=== PATIENT | female | born 1950 | race Caucasian/White ===

== ENCOUNTER 2018-05-12 13:26 | Inpatient (IN) | payer MEDICARE, MEDICAID ==
[~2018-05-12] VITALS: Ht 160 cm; Wt 84.8 kg
[2018-05-12 14:08] LABS: BASOPHILS % (AUTO) 0.4 % (0-1); EOSINOPHILS % (AUTO) 0 % (0-6); HEMATOCRIT 35.9 % (35.0-45.0); HEMOGLOBIN 11.7 g/dl (12.0-16.0); LYMPHOCYTES # (AUTO) 2.2 X10'3 (1.1-4.8); LYMPHOCYTES % (AUTO) 21.9 % (21-51); MEAN CORPUSCULAR HEMOGLOBIN 29.3 PG (27.0-31.0); MEAN CORPUSCULAR HGB CONC 32.6 % (33.0-36.5); MEAN CORPUSCULAR VOLUME 89.8 FL (78-98); MEAN PLATELET VOLUME 9.3 FL (7.4-10.4); MONOCYTES % (AUTO) 9.6 % (2-12); NEUTROPHILS # (AUTO) 6.8 X10'3 (1.8-7.7); NEUTROPHILS % (AUTO) 68.1 % (42-75); PLATELET COUNT 211 X10'3 (140-440); RED CELL DISTRIBUTION WIDTH 15.6 % (11.5-14.5)
[2018-05-12 14:17] LABS: INR 1.1 INR; PARTIAL THROMBOPLASTIN TIME 27 SECONDS (22-32); PROTHROMBIN TIME 10.9 SECONDS (9.0-12.0)
[2018-05-12] MEDS ORDERED: ondansetron 4mg rapidly disintigrating tab PO ONE (14:20)
[2018-05-12] MEDS ORDERED: LORazepam 1 MG tablet PO ONE (14:20)
[2018-05-12] MEDS ORDERED: aspirin 325mg tablet PO ONE (14:20)
[2018-05-12 14:22] LABS: ALANINE AMINOTRANSFERASE 33 U/L (12-78); ALBUMIN 3.3 G/DL (3.4-5.0); ALBUMIN/GLOBULIN RATIO 0.9 (1.1-1.5); ALKALINE PHOSPHATASE 60 IU/L (46-116); ANION GAP 11 (8-16); ASPARTATE AMINO TRANSFERASE 14 U/L (10-37); BILIRUBIN,TOTAL 0.2 MG/DL (0.1-1.0); BLOOD UREA NITROGEN 16 MG/DL (7-18); CALCIUM 9.3 MG/DL (8.5-10.1); CHLORIDE 101 MMOL/L (99-107); CREATININE 0.84 MG/DL (0.40-0.90); GLUCOSE 87 MG/DL (70-104); POTASSIUM 3.8 MMOL/L (3.5-5.1); SODIUM 140 MMOL/L (135-145); TOTAL CARBON DIOXIDE 27.8 MMOL/L (24-32); TOTAL PROTEIN 6.8 G/DL (6.4-8.2); eGFR 68 ML/MIN
[2018-05-12] MEDS ORDERED: nitroGLYCERIN 0.4mg SUBLingual tab SL PRN ×2 (15:45→17:35)
[2018-05-12] MEDS ORDERED: ondansetron/PF 4mg/2ml inj IV PRN (15:45)
[2018-05-12] MEDS ORDERED: magnesium hydroxide 30ml (MOM) UD suspension PO PRN (15:45)
[2018-05-12] MEDS ORDERED: mag hydrox/Alum hydrox/simeth 30ml oral suspension PO PRN (15:45)
[2018-05-12] MEDS ORDERED: morphine 4 MG/ML inj SYRINge IV PRN ×2 (15:45)
[2018-05-12] MEDS ORDERED: acetaminophen 325mg tablet PO PRN (15:45)
[2018-05-12] MEDS ORDERED: LISI-600 PO (16:00)
[2018-05-12] MEDS ORDERED: DICL100G15 TOP (16:00)
[2018-05-12] MEDS ORDERED: KETO120S2 TOP (16:00)
[2018-05-12] MEDS ORDERED: OXCA300T PO (16:00)
[2018-05-12] MEDS ORDERED: CHOL10002 PO (16:00)
[2018-05-12] MEDS ORDERED: CLOZ50TA PO (16:00)
[2018-05-12] MEDS ORDERED: ATOR40TA PO (16:00)
[2018-05-12] MEDS ORDERED: ESCI20TA38 PO (16:00)
[2018-05-12] MEDS ORDERED: ATEN-169 PO (16:00)
[2018-05-12] MEDS ORDERED: DOCU-21 PO (16:00)
[2018-05-12] MEDS ORDERED: METF10004 PO (16:00)
[2018-05-12] MEDS ORDERED: IBUP-1984 PO (16:00)
[2018-05-12] MEDS ORDERED: ONDA8TAB9 PO (16:00)
[2018-05-12] MEDS ORDERED: CLOZ200T PO (16:00)
[2018-05-12] MEDS ORDERED: VENL150C2 PO (16:00)
[2018-05-12 16:04] LABS: HEMOGLOBIN A1C 6.7 % (4.5-6.2)
[2018-05-12] MEDS ORDERED: CAFFEINE CITRATE 60 MG/3 ML injection vial IV PRN (17:35)
[2018-05-12] MEDS ORDERED: metoprolol tartrate 1mg/ml inj IV PRN (17:35)
[2018-05-12] MEDS ORDERED: regadenoson 0.4mg/5ml syringe IV PRN (17:35)
[2018-05-12] MEDS: furosemide 20 MG/2 ML vial IV SCH ×2 (18:16→20:00)
[2018-05-12 19:30] VITALS: BP 157/74
[2018-05-12 22:00] VITALS: BP 151/85
[2018-05-12] MEDS: LORazepam 1 MG tablet PO PRN (22:25)
[2018-05-13] VITALS (10 sets, daily range): BP systolic 123–184; BP diastolic 66–100
[2018-05-13 02:07] LABS: CHOL/HDL RATIO 2.8 (0.00-4.99); CHOLESTEROL 129 MG/DL (0-200); HDL CHOLESTEROL 46 MG/DL (35-60); LDL CHOLESTEROL 61 MG/DL (50-100); TRIGLYCERIDES 212 MG/DL (20-135)
[2018-05-13] MEDS: LORazepam 1 MG tablet PO PRN ×2 (02:39→07:28)
[2018-05-13] MEDS ORDERED: aspirin 325mg tablet ONE (07:23)
[2018-05-13] MEDS: furosemide 20 MG/2 ML vial IV SCH (07:27)
[2018-05-13] MEDS ORDERED: enoxaparin 40mg/0.4ml syringe SUBCUT SCH (08:00)
[2018-05-13] MEDS ORDERED: aspirin 325mg tablet PO SCH (08:30)
[2018-05-13] MEDS ORDERED: CAFFEINE CITRATE 60 MG/3 ML injection vial IV ONE (09:14)
[2018-05-13] MEDS ORDERED: regadenoson 0.4mg/5ml syringe IV ONE (09:14)
[2018-05-13] MEDS ORDERED: citalopram 20mg tablet PO SCH (14:40)
[2018-05-13] MEDS ORDERED: ASPI81TA52 PO (15:49)
[2018-05-13] MEDS ORDERED: ATEN100T6 PO (15:49)
[2018-05-13] MEDS ORDERED: FURO20TA4 PO (15:50)
[2018-05-13] MEDS ORDERED: oxcarbazepine 150mg tablet PO SCH (20:00)
[2018-05-13] MEDS ORDERED: atorvastatin 20mg tablet PO SCH (21:00)
[2018-05-14] MEDS ORDERED: venlafaxine XR 75mg capsule (Q24H) PO SCH (08:00)
[2018-05-14] MEDS ORDERED: atenolol 25mg tablet PO SCH (08:00)
[2018-05-14] MEDS ORDERED: CLOZAPINE PO SCH (08:00)
[2018-05-14] MEDS ORDERED: lisinopril 20mg tablet PO SCH (08:00)
[2018-05-14] MEDS ORDERED: ATEN-169 PO (17:18)
[2018-05-14] MEDS ORDERED: CLOZ25TA12 PO (17:20)
[2018-05-14] MEDS ORDERED: CLOZ200T PO (17:20)
[2018-05-14] MEDS ORDERED: ACET-812 PO (17:23)
[2018-05-14] MEDS ORDERED: DICL100G15 TOP (17:25)
[2018-05-14] MEDS ORDERED: RISP37.5 IM (17:28)
[2018-05-14] MEDS ORDERED: FURO-150 PO (17:29)
== END 2018-05-13 16:30 | disposition home health service (06) | DRG 293 ==
LOC: ER 13:27 → ED HOLD 16:21 → CMPBEDREQ 19:31 → PCU 3S 19:33
PROVIDERS: ADMIT Internal Medicine; ATTEND Family Medicine
PROC: 4A02XM4 Measurement of Cardiac Total Activity, External Approach (ICD-10-PCS; principal; 2018-05-13)
PROC: 3E073KZ Introduction of Other Diagnostic Substance into Coronary Artery, Percutaneous Approach (ICD-10-PCS; 2018-05-13)
DX: I11.0 Hypertensive heart disease with heart failure (principal); I50.21 Acute systolic (congestive) heart failure; F32.9 Major depressive disorder, single episode, unspecified; R07.9 Chest pain, unspecified; F20.9 Schizophrenia, unspecified; E11.9 Type 2 diabetes mellitus without complications; E78.5 Hyperlipidemia, unspecified; F41.9 Anxiety disorder, unspecified; Z79.82 Long term (current) use of aspirin; Z79.84 Long term (current) use of oral hypoglycemic drugs; Z79.899 Other long term (current) drug therapy; Z87.891 Personal history of nicotine dependence
CPT/HCPCS: 36415; 71045; 78452; 80053; 80061; 83036; 83880; 84484; 85025; 85610; 85730; 87070; 93005; 93017; 93306; 99285; A9500; J1650; J1940

== ENCOUNTER 2018-05-14 12:01 | Inpatient (IN) | payer MEDICARE, MEDICAID ==
[~2018-05-14] VITALS: Ht 167.6 cm; Wt 75.0 kg
[~2018-05-14 12:01] MED LIST: ASPI81TA52 PO; ATEN100T6 PO; ATOR40TA PO; CHOL10002 PO; CLOZ200T PO; CLOZ50TA PO; DOCU-21 PO; ESCI20TA38 PO; FURO20TA4 PO; KETO120S2 TOP; LISI-600 PO; METF10004 PO; ONDA8TAB9 PO; OXCA300T PO; VENL150C2 PO
[2018-05-14] MEDS ORDERED: naloxone 2mg/2ml inj ONE (12:17)
[2018-05-14] MEDS ORDERED: normal saline 1000ML IV soln IVB ONE (12:55)
[2018-05-14 13:25] LABS: BASOPHILS % (AUTO) 0.3 % (0-1); EOSINOPHILS % (AUTO) 0 % (0-6); HEMATOCRIT 37.5 % (35.0-45.0); HEMOGLOBIN 12.4 g/dl (12.0-16.0); MEAN CORPUSCULAR HEMOGLOBIN 29.3 PG (27.0-31.0); MEAN CORPUSCULAR HGB CONC 33.1 % (33.0-36.5); MEAN CORPUSCULAR VOLUME 88.8 FL (78-98); MEAN PLATELET VOLUME 9.3 FL (7.4-10.4); NEUTROPHILS # (AUTO) 7.4 X10'3 (1.8-7.7); NEUTROPHILS % (AUTO) 70.7 % (42-75); PLATELET COUNT 229 X10'3 (140-440); RED BLOOD COUNT 4.22 X10'6 (4.20-5.60); RED CELL DISTRIBUTION WIDTH 15.7 % (11.5-14.5); WHITE BLOOD COUNT 10.4 X10'3 (4.5-11.0)
[2018-05-14 13:35] LABS: INR 1.1 INR; PARTIAL THROMBOPLASTIN TIME 27 SECONDS (22-32); PROTHROMBIN TIME 11.3 SECONDS (9.0-12.0)
[2018-05-14 13:40] LABS: ALANINE AMINOTRANSFERASE 27 U/L (12-78); ALBUMIN 3.4 G/DL (3.4-5.0); ALBUMIN/GLOBULIN RATIO 0.9 (1.1-1.5); ALKALINE PHOSPHATASE 70 IU/L (46-116); ANION GAP 9 (8-16); ASPARTATE AMINO TRANSFERASE 12 U/L (10-37); BILIRUBIN,TOTAL 0.2 MG/DL (0.1-1.0); BLOOD UREA NITROGEN 14 MG/DL (7-18); BUN/CREATININE RATIO 17.3 (6.6-38.0); CALCIUM 9.3 MG/DL (8.5-10.1); CHLORIDE 103 MMOL/L (99-107); CREATININE 0.81 MG/DL (0.40-0.90); ETHANOL < 0.010 GM/DL (0.0-0.010); GLUCOSE 133 MG/DL (70-104); POTASSIUM 3.5 MMOL/L (3.5-5.1); SODIUM 141 MMOL/L (135-145); TOTAL CARBON DIOXIDE 29.5 MMOL/L (24-32); TOTAL PROTEIN 7.2 G/DL (6.4-8.2); eGFR 71 ML/MIN
[2018-05-14 14:51] LABS: CLARITY,URINE SLIGHTLY CLOUDY (Clear); COLOR,URINE YELLOW (Yellow); GLUCOSE, URINE NEGATIVE (Neg); KETONES,URINE NEGATIVE (Neg); LEUKOCYTE ESTERASE ,URINE SMALL (Neg); NITRITES, URINE POSITIVE (Neg); OCCULT BLOOD,URINE MODERATE (Neg); PROTEIN,URINE 30 mg/dl (Neg); URINE AMPHETAMINE SCREEN NEGATIVE (Neg); URINE BARBITUATE SCREEN NEGATIVE (Neg); URINE BENZODIAZEPINES SCREEN NEGATIVE (Neg); URINE CANNABINOID SCREEN NEGATIVE (Neg); URINE COCAINE SCREEN NEGATIVE (Neg); URINE METHADONE SCREEN NEGATIVE (Neg); URINE OPIATE SCREEN NEGATIVE (Neg); URINE PHENCYCLIDINE SCREEN NEGATIVE (Neg); UROBILINOGEN,URINE 0.2 E.U/dL (0.2-1.0)
[2018-05-14 14:59] LABS: UA COLLECTION TYPE STRAIGHT CATH
[2018-05-14 15:00] LABS: BACTERIA,URINE 4+ /HPF (Neg); MUCUS STRANDS FEW /LPF (Neg); RBC,URINE 0-2 /HPF (0-2); SQUAMOUS EPITHELIAL CELL,UR FEW /LPF (FEW)
[2018-05-14] MEDS ORDERED: CefTRIAXone 2gm/D5W 50ml 50 ML IV ONE (15:30)
[2018-05-14] MEDS ORDERED: Ivermectin 3mg tablet PO ONE (16:10)
[2018-05-14] MEDS ORDERED: magnesium 4gm in 100ml NS 100 ML IV PRN (16:10)
[2018-05-14] MEDS ORDERED: magnesium hydroxide 30ml (MOM) UD suspension PO PRN (16:10)
[2018-05-14] MEDS ORDERED: ondansetron/PF 4mg/2ml inj IV PRN (16:10)
[2018-05-14] MEDS ORDERED: acetaminophen 325mg tablet PO PRN ×2 (16:10)
[2018-05-14] MEDS ORDERED: HYDROcodone/acetaminophen 5mg/325mg tablet PO PRN (16:10)
[2018-05-14] MEDS ORDERED: potassium Cl 40MEQ/NS 500ml 500 ML IV PRN ×2 (16:10)
[2018-05-14] MEDS ORDERED: magnesium 1gm/100ml D5W IVPB 50 ML IV PRN (16:10)
[2018-05-14] MEDS ORDERED: HYDROcodone/acetaminophen 10/325mg tab PO PRN (16:10)
[2018-05-14] MEDS ORDERED: Permethrin Cream 60gm TP ONE (16:10)
[2018-05-14] MEDS ORDERED: magnesium Cl slow-release 64mg tablet PO PRN (16:10)
[2018-05-14] MEDS ORDERED: potassium Cl 20 mEq SR tablet PO PRN (16:10)
[2018-05-14] MEDS ORDERED: mag hydrox/Alum hydrox/simeth 30ml oral suspension PO PRN (16:10)
[2018-05-14] MEDS: K and/or MAG REPLACEMENT MC SCH (16:10)
[2018-05-14] MEDS ORDERED: ATEN-169 PO (17:18)
[2018-05-14] MEDS ORDERED: CLOZ200T PO (17:20)
[2018-05-14] MEDS ORDERED: CLOZ25TA12 PO (17:20)
[2018-05-14] MEDS ORDERED: ACET-812 PO (17:23)
[2018-05-14] MEDS ORDERED: DICL100G15 TOP (17:25)
[2018-05-14] MEDS ORDERED: RISP37.5 IM (17:28)
[2018-05-14] MEDS ORDERED: FURO-150 PO (17:29)
[2018-05-14] MEDS ORDERED: RISPERIDONE MICROSPHERES IM SCH (17:45)
[2018-05-14] MEDS ORDERED: MESSAGE TO PHARMACY PO ONE (17:50)
[2018-05-14] MEDS ORDERED: dextrose 50%-water 50ml dispensing syringe IV PRN ×2 (17:50)
[2018-05-14] MEDS ORDERED: dextrose ORAL solution 15 GM/59 ML bottle PO PRN ×2 (17:50)
[2018-05-14] MEDS ORDERED: glucagon, human recombinant 1mg kit SUBCUT PRN (17:50)
[2018-05-14] MEDS: normal saline 1000ml 1,000 ML IV SCH (18:06)
[2018-05-14] MEDS ORDERED: non-formulary drug (Oxcarbazepine 1 TAB) PO SCH (20:00)
[2018-05-14] MEDS ORDERED: non-formulary drug (Clozapine 1 TAB) PO SCH (21:00)
[2018-05-14] MEDS: insulin glargine (Lantus) pen - multi-dose SQ SCH (21:00)
[2018-05-14] MEDS ORDERED: temazepam 15mg capsule PO PRN (21:00)
[2018-05-14] MEDS ORDERED: non-formulary drug (Atorvastatin Calcium* (Lipitor*) 1 TABLET) PO SCH (21:00)
[2018-05-14] MEDS: atorvastatin 20mg tablet PO SCH (21:01)
[2018-05-14] MEDS: docusate sod 100mg capsule PO SCH (21:01)
[2018-05-14] MEDS: oxcarbazepine 150mg tablet PO SCH (21:01)
[2018-05-14] MEDS: CLOZAPINE 200 MG PO SCH (21:51)
[2018-05-14 22:00] VITALS: BP 124/71
[2018-05-15] MEDS: normal saline 1000ml 1,000 ML IV SCH ×2 (02:06→16:18)
[2018-05-15 05:55] LABS: BASOPHILS # (AUTO) 0.1 X10'3 (0-0.2); BASOPHILS % (AUTO) 1.1 % (0-1); EOSINOPHILS % (AUTO) 0 % (0-6); HEMATOCRIT 37.2 % (35.0-45.0); LYMPHOCYTES # (AUTO) 2.4 X10'3 (1.1-4.8); LYMPHOCYTES % (AUTO) 22.8 % (21-51); MEAN CORPUSCULAR HEMOGLOBIN 28.8 PG (27.0-31.0); MEAN CORPUSCULAR HGB CONC 32.2 % (33.0-36.5); MEAN CORPUSCULAR VOLUME 89.5 FL (78-98); MEAN PLATELET VOLUME 9.8 FL (7.4-10.4); MONOCYTES # (AUTO) 0.9 X10'3 (0-0.9); NEUTROPHILS # (AUTO) 7.3 X10'3 (1.8-7.7); NEUTROPHILS % (AUTO) 68.1 % (42-75); PLATELET COUNT 212 X10'3 (140-440); RED BLOOD COUNT 4.16 X10'6 (4.20-5.60); RED CELL DISTRIBUTION WIDTH 15.7 % (11.5-14.5); WHITE BLOOD COUNT 10.7 X10'3 (4.5-11.0)
[2018-05-15 06:31] LABS: ALANINE AMINOTRANSFERASE 30 U/L (12-78); ALBUMIN 3.4 G/DL (3.4-5.0); ALBUMIN/GLOBULIN RATIO 0.9 (1.1-1.5); ALKALINE PHOSPHATASE 66 IU/L (46-116); ANION GAP 10 (8-16); ASPARTATE AMINO TRANSFERASE 18 U/L (10-37); BILIRUBIN,TOTAL 0.3 MG/DL (0.1-1.0); BLOOD UREA NITROGEN 13 MG/DL (7-18); BUN/CREATININE RATIO 15.5 (6.6-38.0); CALCIUM 8.9 MG/DL (8.5-10.1); CHLORIDE 104 MMOL/L (99-107); CREATININE 0.84 MG/DL (0.40-0.90); GLUCOSE 157 MG/DL (70-104); MAGNESIUM 1.5 MG/DL (1.5-2.4); POTASSIUM 3.4 MMOL/L (3.5-5.1); SODIUM 142 MMOL/L (135-145); TOTAL PROTEIN 7.1 G/DL (6.4-8.2); eGFR 68 ML/MIN
[2018-05-15 07:15] VITALS: BP 167/99
[2018-05-15] MEDS: docusate sod 100mg capsule PO SCH ×2 (07:28→21:26)
[2018-05-15] MEDS: citalopram 20mg tablet PO SCH (07:28)
[2018-05-15] MEDS: aspirin 81mg tablet.DR PO SCH (07:28)
[2018-05-15] MEDS: lisinopril 20mg tablet PO SCH (07:28)
[2018-05-15] MEDS: furosemide 20MG tablet PO SCH (07:28)
[2018-05-15] MEDS: ondansetron 4mg rapidly disintigrating tab PO SCH (07:28)
[2018-05-15] MEDS: potassium Cl 20 mEq SR tablet PO PRN ×3 (07:29→21:26)
[2018-05-15] MEDS: venlafaxine XR 75mg capsule (Q24H) PO SCH (07:29)
[2018-05-15] MEDS: oxcarbazepine 150mg tablet PO SCH ×2 (07:29→21:29)
[2018-05-15] MEDS: CLOZAPINE 25MG TABLET PO SCH (07:30)
[2018-05-15] MEDS ORDERED: escitalopram 20mg tablet PO SCH (08:00)
[2018-05-15] MEDS ORDERED: non-formulary drug (Ondansetron (Zofran Odt) 1 TAB) PO SCH (08:00)
[2018-05-15] MEDS ORDERED: CefTRIAXone/D5W-Rocephin 1gm 50 ML IV SCH (08:00)
[2018-05-15] MEDS ORDERED: atenolol 25mg tablet PO SCH (08:00)
[2018-05-15] MEDS ORDERED: CLOZAPINE PO SCH (08:00)
[2018-05-15] MEDS: K and/or MAG REPLACEMENT MC SCH (08:00)
[2018-05-15] MEDS ORDERED: non-formulary drug (Venlafaxine HCl (Effexor Xr) 2 CAP) PO SCH (08:00)
[2018-05-15 09:01] VITALS: BP 153/81
[2018-05-15] MEDS: nitroGLYCERIN 0.4mg/hour patch TD SCH (16:18)
[2018-05-15] MEDS: pantoprazole 40mg Tablet.DR PO SCH (16:18)
[2018-05-15 18:00] VITALS: BP 138/83
[2018-05-15] MEDS: atorvastatin 20mg tablet PO SCH (21:26)
[2018-05-15] MEDS: CLOZAPINE 200 MG PO SCH (21:27)
[2018-05-15] MEDS: insulin glargine (Lantus) pen - multi-dose SQ SCH (21:31)
[2018-05-15 22:00] VITALS: BP 129/68
[2018-05-16] MEDS ORDERED: CefTRIAXone 2gm/D5W 50ml 50 ML IV ONE (01:00)
[2018-05-16] MEDS: normal saline 1000ml 1,000 ML IV SCH ×2 (06:24→14:41)
[2018-05-16 06:32] LABS: BASOPHILS # (AUTO) 0.1 X10'3 (0-0.2); BASOPHILS % (AUTO) 0.6 % (0-1); EOSINOPHILS % (AUTO) 0 % (0-6); HEMATOCRIT 32.9 % (35.0-45.0); HEMOGLOBIN 10.8 g/dl (12.0-16.0); LYMPHOCYTES # (AUTO) 1.9 X10'3 (1.1-4.8); LYMPHOCYTES % (AUTO) 18.8 % (21-51); MEAN CORPUSCULAR HGB CONC 32.8 % (33.0-36.5); MEAN CORPUSCULAR VOLUME 88.6 FL (78-98); MEAN PLATELET VOLUME 9.6 FL (7.4-10.4); MONOCYTES # (AUTO) 0.9 X10'3 (0-0.9); MONOCYTES % (AUTO) 8.6 % (2-12); NEUTROPHILS # (AUTO) 7.4 X10'3 (1.8-7.7); PLATELET COUNT 172 X10'3 (140-440); RED BLOOD COUNT 3.71 X10'6 (4.20-5.60); RED CELL DISTRIBUTION WIDTH 15.7 % (11.5-14.5); WHITE BLOOD COUNT 10.2 X10'3 (4.5-11.0)
[2018-05-16 06:41] VITALS: BP 110/75
[2018-05-16 06:58] LABS: ALANINE AMINOTRANSFERASE 22 U/L (12-78); ALBUMIN 2.8 G/DL (3.4-5.0); ALBUMIN/GLOBULIN RATIO 0.8 (1.1-1.5); ALKALINE PHOSPHATASE 58 IU/L (46-116); ANION GAP 6 (8-16); ASPARTATE AMINO TRANSFERASE 15 U/L (10-37); BILIRUBIN,TOTAL 0.2 MG/DL (0.1-1.0); BLOOD UREA NITROGEN 14 MG/DL (7-18); BUN/CREATININE RATIO 18.4 (6.6-38.0); CALCIUM 8.5 MG/DL (8.5-10.1); CHLORIDE 105 MMOL/L (99-107); CREATININE 0.76 MG/DL (0.40-0.90); GLUCOSE 132 MG/DL (70-104); MAGNESIUM 1.5 MG/DL (1.5-2.4); POTASSIUM 3.7 MMOL/L (3.5-5.1); SODIUM 139 MMOL/L (135-145); TOTAL CARBON DIOXIDE 28.3 MMOL/L (24-32); TOTAL PROTEIN 6.1 G/DL (6.4-8.2); eGFR 76 ML/MIN
[2018-05-16] MEDS: K and/or MAG REPLACEMENT MC SCH (07:09)
[2018-05-16] MEDS: atenolol 25mg tablet PO SCH (07:19)
[2018-05-16] MEDS: pantoprazole 40mg Tablet.DR PO SCH (07:19)
[2018-05-16] MEDS: CLOZAPINE 25MG TABLET PO SCH (07:19)
[2018-05-16] MEDS: aspirin 81mg tablet.DR PO SCH (07:20)
[2018-05-16] MEDS: furosemide 20MG tablet PO SCH (07:20)
[2018-05-16] MEDS: oxcarbazepine 150mg tablet PO SCH ×2 (07:20→19:09)
[2018-05-16] MEDS: lisinopril 20mg tablet PO SCH (07:20)
[2018-05-16] MEDS: ondansetron 4mg rapidly disintigrating tab PO SCH (07:20)
[2018-05-16] MEDS: citalopram 20mg tablet PO SCH (07:20)
[2018-05-16] MEDS: venlafaxine XR 75mg capsule (Q24H) PO SCH (07:20)
[2018-05-16] MEDS: docusate sod 100mg capsule PO SCH ×2 (07:20→19:09)
[2018-05-16 10:39] VITALS: BP_SYST 129; BP_DIAS 29; BP_DIAS 62
[2018-05-16] MEDS: nitroGLYCERIN 0.4mg/hour patch TD SCH (12:02)
[2018-05-16] MEDS: insulin Lispro (HumaLOG) vial - multi-dose SQ SCH ×2 (14:05→19:06)
[2018-05-16] MEDS: CefTRIAXone/D5W-Rocephin 1gm 50 ML IV SCH (14:05)
[2018-05-16 18:00] VITALS: BP 137/85
[2018-05-16] MEDS: lactobacillus rhamnosus 10,000 MMU CELLS/CAPSULE PO SCH (19:09)
[2018-05-16] MEDS: atorvastatin 20mg tablet PO SCH (21:30)
[2018-05-16] MEDS: CLOZAPINE 200 MG PO SCH (21:30)
[2018-05-16] MEDS: insulin glargine (Lantus) pen - multi-dose SQ SCH (21:30)
[2018-05-16 22:00] VITALS: BP 126/75
[2018-05-17] MEDS: CefTRIAXone/D5W-Rocephin 1gm 50 ML IV SCH (00:50)
[2018-05-17 06:00] VITALS: BP 163/105
[2018-05-17 06:10] LABS: BASOPHILS % (AUTO) 0.3 % (0-1); EOSINOPHILS % (AUTO) 0 % (0-6); HEMATOCRIT 35.7 % (35.0-45.0); HEMOGLOBIN 11.7 g/dl (12.0-16.0); LYMPHOCYTES # (AUTO) 1.9 X10'3 (1.1-4.8); LYMPHOCYTES % (AUTO) 21.2 % (21-51); MEAN CORPUSCULAR HEMOGLOBIN 29.3 PG (27.0-31.0); MEAN CORPUSCULAR HGB CONC 32.9 % (33.0-36.5); MEAN CORPUSCULAR VOLUME 89.1 FL (78-98); MEAN PLATELET VOLUME 9.3 FL (7.4-10.4); MONOCYTES # (AUTO) 0.8 X10'3 (0-0.9); MONOCYTES % (AUTO) 8.7 % (2-12); NEUTROPHILS # (AUTO) 6.4 X10'3 (1.8-7.7); NEUTROPHILS % (AUTO) 69.8 % (42-75); PLATELET COUNT 187 X10'3 (140-440); RED CELL DISTRIBUTION WIDTH 15.8 % (11.5-14.5); WHITE BLOOD COUNT 9.1 X10'3 (4.5-11.0)
[2018-05-17 06:19] LABS: ALANINE AMINOTRANSFERASE 29 U/L (12-78); ALBUMIN 3.1 G/DL (3.4-5.0); ALBUMIN/GLOBULIN RATIO 0.8 (1.1-1.5); ALKALINE PHOSPHATASE 69 IU/L (46-116); ANION GAP 7 (8-16); ASPARTATE AMINO TRANSFERASE 19 U/L (10-37); BILIRUBIN,TOTAL 0.3 MG/DL (0.1-1.0); BLOOD UREA NITROGEN 10 MG/DL (7-18); BUN/CREATININE RATIO 15.9 (6.6-38.0); CALCIUM 8.9 MG/DL (8.5-10.1); CHLORIDE 106 MMOL/L (99-107); CREATININE 0.63 MG/DL (0.40-0.90); GLUCOSE 142 MG/DL (70-104); MAGNESIUM 1.5 MG/DL (1.5-2.4); POTASSIUM 3.1 MMOL/L (3.5-5.1); SODIUM 145 MMOL/L (135-145); TOTAL CARBON DIOXIDE 31.8 MMOL/L (24-32); TOTAL PROTEIN 6.9 G/DL (6.4-8.2); eGFR > 90 ML/MIN
[2018-05-17] MEDS: furosemide 20MG tablet PO SCH (07:48)
[2018-05-17] MEDS: lactobacillus rhamnosus 10,000 MMU CELLS/CAPSULE PO SCH ×2 (07:48→20:37)
[2018-05-17] MEDS: citalopram 20mg tablet PO SCH (07:48)
[2018-05-17] MEDS: potassium Cl 20 mEq SR tablet PO PRN (07:48)
[2018-05-17] MEDS: docusate sod 100mg capsule PO SCH ×2 (07:48→20:37)
[2018-05-17] MEDS: aspirin 81mg tablet.DR PO SCH (07:48)
[2018-05-17] MEDS: pantoprazole 40mg Tablet.DR PO SCH (07:48)
[2018-05-17] MEDS: lisinopril 20mg tablet PO SCH (07:49)
[2018-05-17] MEDS: CLOZAPINE 25MG TABLET PO SCH (07:49)
[2018-05-17] MEDS: atenolol 25mg tablet PO SCH (07:49)
[2018-05-17] MEDS: ondansetron 4mg rapidly disintigrating tab PO SCH (07:49)
[2018-05-17] MEDS: nitroGLYCERIN 0.4mg/hour patch TD SCH (07:50)
[2018-05-17] MEDS: oxcarbazepine 150mg tablet PO SCH ×2 (07:50→20:37)
[2018-05-17] MEDS: venlafaxine XR 75mg capsule (Q24H) PO SCH (07:50)
[2018-05-17] MEDS: K and/or MAG REPLACEMENT MC SCH (08:00)
[2018-05-17] MEDS ORDERED: RISPERDAL CONSTA 37.5 MG IM SCH (09:00)
[2018-05-17] MEDS: insulin Lispro (HumaLOG) vial - multi-dose SQ SCH ×3 (09:00→20:36)
[2018-05-17 10:00] VITALS: BP 119/71
[2018-05-17] MEDS ORDERED: LORazepam 2 mg/ml vial IV PRN (10:25)
[2018-05-17] MEDS: normal saline 1000ml 1,000 ML IV SCH ×2 (12:00→22:44)
[2018-05-17] MEDS ORDERED: magnesium 1gm/100ml D5W IVPB 100 ML IV PRN ×2 (13:15→22:30)
[2018-05-17 18:30] VITALS: BP 124/78
[2018-05-17] MEDS: atorvastatin 20mg tablet PO SCH (20:37)
[2018-05-17] MEDS: CLOZAPINE 200 MG PO SCH (21:00)
[2018-05-17 22:00] VITALS: BP 161/99
[2018-05-17] MEDS ORDERED: magnesium 4gm in 100ml NS 100 ML IV PRN (22:30)
[2018-05-17] MEDS ORDERED: potassium Cl 40MEQ/NS 500ml 500 ML IV PRN ×2 (22:30)
[2018-05-17] MEDS ORDERED: potassium Cl 20 mEq SR tablet PO PRN (22:30)
[2018-05-17] MEDS ORDERED: magnesium Cl slow-release 64mg tablet PO PRN (22:30)
[2018-05-17] MEDS: insulin glargine (Lantus) pen - multi-dose SQ SCH (22:43)
[2018-05-18 06:00] VITALS: BP 129/87
[2018-05-18 06:19] LABS: BASOPHILS # (AUTO) 0.1 X10'3 (0-0.2); BASOPHILS % (AUTO) 0.7 % (0-1); EOSINOPHILS # (AUTO) 0.1 X10'3 (0-0.9); EOSINOPHILS % (AUTO) 0.9 % (0-6); HEMOGLOBIN 11.4 g/dl (12.0-16.0); LYMPHOCYTES # (AUTO) 1.9 X10'3 (1.1-4.8); LYMPHOCYTES % (AUTO) 22.9 % (21-51); MEAN CORPUSCULAR HEMOGLOBIN 29.4 PG (27.0-31.0); MEAN CORPUSCULAR HGB CONC 33.4 % (33.0-36.5); MEAN PLATELET VOLUME 9.4 FL (7.4-10.4); MONOCYTES # (AUTO) 0.7 X10'3 (0-0.9); MONOCYTES % (AUTO) 9.1 % (2-12); NEUTROPHILS # (AUTO) 5.4 X10'3 (1.8-7.7); NEUTROPHILS % (AUTO) 66.4 % (42-75); PLATELET COUNT 179 X10'3 (140-440); RED BLOOD COUNT 3.87 X10'6 (4.20-5.60); RED CELL DISTRIBUTION WIDTH 15.2 % (11.5-14.5); WHITE BLOOD COUNT 8.1 X10'3 (4.5-11.0)
[2018-05-18 06:34] LABS: ALANINE AMINOTRANSFERASE 31 U/L (12-78); ALBUMIN 2.8 G/DL (3.4-5.0); ALBUMIN/GLOBULIN RATIO 0.8 (1.1-1.5); ALKALINE PHOSPHATASE 62 IU/L (46-116); ANION GAP 5 (8-16); ASPARTATE AMINO TRANSFERASE 19 U/L (10-37); BILIRUBIN,TOTAL 0.2 MG/DL (0.1-1.0); BLOOD UREA NITROGEN 12 MG/DL (7-18); BUN/CREATININE RATIO 16.4 (6.6-38.0); CALCIUM 8.3 MG/DL (8.5-10.1); CHLORIDE 105 MMOL/L (99-107); CREATININE 0.73 MG/DL (0.40-0.90); GLUCOSE 105 MG/DL (70-104); MAGNESIUM 1.4 MG/DL (1.5-2.4); POTASSIUM 3.1 MMOL/L (3.5-5.1); SODIUM 140 MMOL/L (135-145); TOTAL CARBON DIOXIDE 30.2 MMOL/L (24-32); TOTAL PROTEIN 6.3 G/DL (6.4-8.2); eGFR 80 ML/MIN
[2018-05-18] MEDS: docusate sod 100mg capsule PO SCH (07:20)
[2018-05-18] MEDS: citalopram 20mg tablet PO SCH (07:20)
[2018-05-18] MEDS: pantoprazole 40mg Tablet.DR PO SCH (07:20)
[2018-05-18] MEDS: lactobacillus rhamnosus 10,000 MMU CELLS/CAPSULE PO SCH (07:20)
[2018-05-18] MEDS: aspirin 81mg tablet.DR PO SCH (07:20)
[2018-05-18] MEDS: furosemide 20MG tablet PO SCH (07:20)
[2018-05-18] MEDS: atenolol 25mg tablet PO SCH (07:21)
[2018-05-18] MEDS: lisinopril 20mg tablet PO SCH (07:21)
[2018-05-18] MEDS: ondansetron 4mg rapidly disintigrating tab PO SCH (07:21)
[2018-05-18] MEDS: oxcarbazepine 150mg tablet PO SCH (07:21)
[2018-05-18] MEDS: venlafaxine XR 75mg capsule (Q24H) PO SCH (07:21)
[2018-05-18] MEDS: nitroGLYCERIN 0.4mg/hour patch TD SCH (07:22)
[2018-05-18] MEDS: potassium Cl 20 mEq SR tablet PO PRN ×2 (07:22→12:15)
[2018-05-18] MEDS: CLOZAPINE 25MG TABLET PO SCH (07:22)
[2018-05-18] MEDS ORDERED: CefTRIAXone/D5W-Rocephin 1gm 50 ML IV SCH (08:00)
[2018-05-18] MEDS: K and/or MAG REPLACEMENT MC SCH (08:00)
[2018-05-18] MEDS: insulin Lispro (HumaLOG) vial - multi-dose SQ SCH ×2 (09:11→14:26)
[2018-05-18 10:00] VITALS: BP 123/77
[2018-05-18] MEDS: normal saline 1000ml 1,000 ML IV SCH (10:53)
[2018-05-18] MEDS ORDERED: CEFD300C3 PO (12:08)
[2018-05-18] MEDS ORDERED: FURO20TA4 PO (12:08)
== END 2018-05-18 14:20 | disposition home health service (06) | DRG 689 ==
LOC: ER 12:02 → ED HOLD 16:06 → ORTHO 4S 18:07
PROVIDERS: ADMIT Family Medicine; ATTEND Family Medicine
PROC: 0T9B70Z Drainage of Bladder with Drainage Device, Via Natural or Artificial Opening (ICD-10-PCS; principal; 2018-05-14)
DX: N39.0 Urinary tract infection, site not specified (principal); G93.41 Metabolic encephalopathy; I42.9 Cardiomyopathy, unspecified; B85.1 Pediculosis due to Pediculus humanus corporis; B96.20 Unspecified Escherichia coli [E. coli] as the cause of diseases classified elsewhere; E11.9 Type 2 diabetes mellitus without complications; E78.5 Hyperlipidemia, unspecified; E83.42 Hypomagnesemia; E86.0 Dehydration; E87.6 Hypokalemia; R94.39 Abnormal result of other cardiovascular function study; F20.9 Schizophrenia, unspecified; G24.9 Dystonia, unspecified; I11.0 Hypertensive heart disease with heart failure; I25.10 Atherosclerotic heart disease of native coronary artery without angina pectoris; I50.9 Heart failure, unspecified; F41.9 Anxiety disorder, unspecified; Z79.899 Other long term (current) drug therapy; Z79.84 Long term (current) use of oral hypoglycemic drugs; Z79.82 Long term (current) use of aspirin; Z87.891 Personal history of nicotine dependence
CPT/HCPCS: 36415; 70450; 70544; 70551; 71045; 80053; 80305; 80320; 81001; 82948; 83735; 84484; 85025; 85610; 85730; 87070; 87077; 87088; 87186; 93005; 96374; 97110; 97116; 97161; 97530; 99285; J0696; J1815; J2060; J2310; J7030

== ENCOUNTER 2019-12-17 17:26 | Emergency (ER) | payer MEDICARE, MEDICAID ==
[~2019-12-17] VITALS: Ht 157.5 cm; Wt 83.0 kg
[~2019-12-17 17:26] MED LIST changes: +ACET-812 PO; +ATEN-169 PO; -ATEN100T6 PO; +CLOZ25TA12 PO; -CLOZ50TA PO; -ESCI20TA38 PO; +ESCI20TA45 PO; -KETO120S2 TOP; +KETO120S3 TOP; +METF-438 PO; -METF10004 PO; -OXCA300T PO; +OXCA300T16 PO; +RISP37.5 IM
--- NOTE | 2019-12-17 17:43 | NUR ---
PATIENT SHOWN TO THE RESTROOM TO OBTAIN URINE SPECIMEN. FAST TRACK TECH TO AREA TO TAKE PATIENT BACK TO FAST TRACK. PATIENT IS NOT IN THE BATHROOM. SEARCHED ALL BATHROOMS AND DEPARTMENT. UNABLE TO LOCATE PATIENT. SECURITY CALLED.
[2019-12-17 18:39] LABS: CLARITY,URINE SLIGHTLY CLOUDY (Clear); COLOR,URINE YELLOW (Yellow); GLUCOSE, URINE NEGATIVE (Neg); KETONES,URINE TRACE mg/dl (Neg); LEUKOCYTE ESTERASE ,URINE NEGATIVE (Neg); NITRITES, URINE NEGATIVE (Neg); OCCULT BLOOD,URINE NEGATIVE (Neg); PROTEIN,URINE NEGATIVE (Neg); UROBILINOGEN,URINE 0.2 E.U/dL (0.2-1.0)
[2019-12-17 18:40] LABS: UA COLLECTION TYPE STRAIGHT CATH
[2019-12-17 18:46] LABS: BACTERIA,URINE 1+ /HPF (Neg); RBC,URINE 0-2 /HPF (0-2); SQUAMOUS EPITHELIAL CELL,UR FEW /LPF (FEW); WBC,URINE 0-4 /HPF (0-4)
[2019-12-17 18:53] VITALS: BP 123/73
--- NOTE | 2019-12-17 18:55 | NUR ---
PT STRAIGHT CATHED WITH NO ISSUES, SCANT OUTPUT, BUT URINE CLEAR AND LIGHT TAMMY.
--- NOTE | 2019-12-17 19:04 | NUR ---
DAUGHTER IN LAW AT BEDSIDE, DONAL NAVARRO, AT BEDSIDE TALKING TO PT AND Lidia.
== END 2019-12-17 19:20 | disposition home or self-care (01) ==
LOC: ER 17:27
DX: M54.5 Low back pain (principal); E11.9 Type 2 diabetes mellitus without complications; F41.9 Anxiety disorder, unspecified; F20.9 Schizophrenia, unspecified; F17.200 Nicotine dependence, unspecified, uncomplicated; Z79.82 Long term (current) use of aspirin; Z79.899 Other long term (current) drug therapy
CPT/HCPCS: 81001; 99283

== ENCOUNTER 2020-05-11 09:59 | Day surgery (SDC) | payer MEDICARE, MEDICAID ==
[~2020-05-11] VITALS: Ht 160 cm; Wt 84.5 kg
[2020-05-11] VITALS (9 sets, daily range): BP systolic 94–170; BP diastolic 55–108
[~2020-05-11 09:59] MED LIST changes: -KETO120S3 TOP; +KETO120S5 TOP; +albumin 25% 100mL bottle x 1 IV PRN
[2020-05-11] MEDS ORDERED: fentaNYL/PF 50MCG/1 ML 2ML syringe ONE (10:30)
[2020-05-11] MEDS ORDERED: MIDAZolam 5mg/5ml vial ONE (10:31)
== END 2020-05-11 13:16 | disposition home or self-care (01) ==
LOC: GI LAB 09:59
PROVIDERS: ATTEND Internal Medicine Gastroenterology
DX: Z12.11 Encounter for screening for malignant neoplasm of colon (principal); D12.8 Benign neoplasm of rectum; C21.0 Malignant neoplasm of anus, unspecified
CPT/HCPCS: 45380; 99153; G0500; J2250; J3010; J7040; 99152; A4620

== ENCOUNTER 2020-05-30 19:47 | Emergency (ER) | payer MEDICARE, MEDICAID ==
[~2020-05-30] VITALS: Ht 160 cm; Wt 81.8 kg
[~2020-05-30 19:47] MED LIST changes: -albumin 25% 100mL bottle x 1 IV PRN
--- NOTE | 2020-05-30 20:18 | NUR ---
pt not in lobby
--- NOTE | 2020-05-30 20:46 | NUR ---
PT SONS CALLED TO SAY THAT PT WENT TO A DOCTOR AND HAS COLON CANCER, HAS CONSTIPATION ISSUES.
--- NOTE | 2020-05-30 20:49 | NUR ---
SON PT SAID IF WE HAD ANY QUESTIONS TO CALL HIM
[2020-05-30 21:09] LABS: BASOPHILS # (AUTO) 0.1 X10'3 (0-0.2); BASOPHILS % (AUTO) 0.7 % (0-1); EOSINOPHILS % (AUTO) 0 % (0-6); HEMATOCRIT 36.5 % (35.0-45.0); LYMPHOCYTES # (AUTO) 2.6 X10'3 (1.1-4.8); LYMPHOCYTES % (AUTO) 20.3 % (21-51); MEAN CORPUSCULAR HEMOGLOBIN 30.3 PG (27.0-31.0); MEAN CORPUSCULAR HGB CONC 32.7 g/dL (33.0-36.5); MEAN CORPUSCULAR VOLUME 92.5 FL (78-98); MEAN PLATELET VOLUME 8.8 FL (7.4-10.4); MONOCYTES # (AUTO) 1.4 X10'3 (0-0.9); NEUTROPHILS # (AUTO) 8.7 X10'3 (1.8-7.7); PLATELET COUNT 259 X10'3 (140-440); RED BLOOD COUNT 3.95 X10'6 (4.20-5.60); WHITE BLOOD COUNT 12.8 X10'3 (4.5-11.0)
[2020-05-30 21:09] LABS: CLARITY,URINE CLOUDY (Clear); COLOR,URINE YELLOW (Yellow); GLUCOSE, URINE NEGATIVE (Neg); KETONES,URINE TRACE mg/dl (Neg); LEUKOCYTE ESTERASE ,URINE TRACE (Neg); NITRITES, URINE NEGATIVE (Neg); OCCULT BLOOD,URINE SMALL (Neg); PROTEIN,URINE TRACE mg/dl (Neg); UROBILINOGEN,URINE 0.2 E.U/dL (0.2-1.0)
[2020-05-30 21:11] LABS: UA COLLECTION TYPE CLN CATCH MIDSTREAM
[2020-05-30 21:17] LABS: BACTERIA,URINE 4+ /HPF (Neg); RBC,URINE 0-2 /HPF (0-2); SQUAMOUS EPITHELIAL CELL,UR MANY /LPF (FEW); WBC,URINE 0-4 /HPF (0-4)
--- NOTE | 2020-05-30 21:17 | NUR ---
rejected for urine culture
[2020-05-30 21:21] LABS: ALANINE AMINOTRANSFERASE 28 U/L (12-78); ALBUMIN 3.6 G/DL (3.4-5.0); ALKALINE PHOSPHATASE 66 IU/L (46-116); ANION GAP 6 (8-16); ASPARTATE AMINO TRANSFERASE 19 U/L (10-37); BILIRUBIN,TOTAL 0.2 MG/DL (0.1-1.0); BLOOD UREA NITROGEN 24 MG/DL (7-18); BUN/CREATININE RATIO 17.9 (6.6-38.0); CHLORIDE 98 MMOL/L (99-107); CREATININE 1.34 MG/DL (0.40-0.90); GLUCOSE 87 MG/DL (70-104); LIPASE 159 U/L (73-393); POTASSIUM 3.8 MMOL/L (3.5-5.1); SODIUM 133 MMOL/L (135-145); TOTAL CARBON DIOXIDE 29.5 MMOL/L (24-32); TOTAL PROTEIN 7.1 G/DL (6.4-8.2); eGFR 39 ML/MIN
[2020-05-30] MEDS ORDERED: SPIR25TA5 PO (21:51)
[2020-05-30] MEDS ORDERED: ALBU18HF2 INH (21:51)
[2020-05-30] MEDS ORDERED: CARV-50 PO (21:51)
[2020-05-30] MEDS ORDERED: POLY17PO10 PO (21:51)
[2020-05-30] MEDS ORDERED: ISON300T20 PO (21:51)
[2020-05-30] MEDS ORDERED: CLOZ100T21 PO (21:51)
[2020-05-30] MEDS ORDERED: ketorolac trometh inj. 60 MG/2 ML VIAL IM ONE (22:00)
[2020-05-30] MEDS ORDERED: acetaminophen 325mg tablet PO ONE (22:00)
--- NOTE | 2020-05-30 22:28 | NUR ---
yanna is the son he will be picking her up [phone]
--- NOTE | 2020-05-30 22:29 | NUR ---
, [phone] other numbers for son
[2020-05-30] MEDS ORDERED: ACET-2006 PO (23:03)
[2020-05-30] MEDS ORDERED: NAPR-56 PO (23:03)
[2020-05-30 23:29] VITALS: BP 143/82
== END 2020-05-30 23:31 | disposition home or self-care (01) ==
LOC: ER 19:49
DX: K62.89 Other specified diseases of anus and rectum (principal); E11.9 Type 2 diabetes mellitus without complications; Z79.899 Other long term (current) drug therapy; Z79.82 Long term (current) use of aspirin
CPT/HCPCS: 36415; 80053; 81001; 83690; 85025; 96372; 99283; J1885

== ENCOUNTER 2020-07-21 10:57 | Inpatient (IN) | payer MEDICARE, MEDICAID ==
[~2020-07-21] VITALS: Ht 167.6 cm; Wt 81.8 kg
[~2020-07-21 10:57] MED LIST changes: +ALBU18HF2 INH; -ATEN-169 PO; +CARV-50 PO; +CLOZ100T21 PO; -CLOZ25TA12 PO; +ISON300T20 PO; +POLY17PO10 PO; +SPIR25TA5 PO
--- NOTE | 2020-07-21 11:57 | NUR ---
Killian peña in [facility] - 07/21/20 at 1159 by SYDNEY NIL
[2020-07-21 12:07] LABS: BASOPHILS # (AUTO) 0.1 X10'3 (0-0.2); BASOPHILS % (AUTO) 0.5 % (0-1); EOSINOPHILS % (AUTO) 0 % (0-6); HEMATOCRIT 33.6 % (35.0-45.0); HEMOGLOBIN 11.4 g/dl (12.0-16.0); LYMPHOCYTES # (AUTO) 1.4 X10'3 (1.1-4.8); LYMPHOCYTES % (AUTO) 11.8 % (21-51); MEAN CORPUSCULAR HEMOGLOBIN 31.8 PG (27.0-31.0); MEAN CORPUSCULAR HGB CONC 33.9 g/dL (33.0-36.5); MEAN CORPUSCULAR VOLUME 93.8 FL (78-98); MEAN PLATELET VOLUME 8.2 FL (7.4-10.4); MONOCYTES # (AUTO) 0.9 X10'3 (0-0.9); MONOCYTES % (AUTO) 7.8 % (2-12); NEUTROPHILS # (AUTO) 9.2 X10'3 (1.8-7.7); NEUTROPHILS % (AUTO) 79.9 % (42-75); PLATELET COUNT 277 X10'3 (140-440); RED BLOOD COUNT 3.58 X10'6 (4.20-5.60); RED CELL DISTRIBUTION WIDTH 13.8 % (11.5-14.5); WHITE BLOOD COUNT 11.6 X10'3 (4.5-11.0)
[2020-07-21 12:08] LABS: CLARITY,URINE SLIGHTLY CLOUDY (Clear); COLOR,URINE YELLOW (Yellow); GLUCOSE, URINE NEGATIVE (Neg); KETONES,URINE NEGATIVE (Neg); LEUKOCYTE ESTERASE ,URINE SMALL (Neg); NITRITES, URINE POSITIVE (Neg); OCCULT BLOOD,URINE SMALL (Neg); PH,URINE 5.5 (4.8-8.0); PROTEIN,URINE NEGATIVE (Neg); UROBILINOGEN,URINE 0.2 E.U/dL (0.2-1.0)
[2020-07-21 12:12] LABS: UA COLLECTION TYPE STRAIGHT CATH
[2020-07-21 12:14] LABS: BACTERIA,URINE 4+ /HPF (Neg); MUCUS STRANDS FEW /LPF (Neg); RBC,URINE 0-2 /HPF (0-2); SQUAMOUS EPITHELIAL CELL,UR FEW /LPF (FEW); WBC,URINE 0-4 /HPF (0-4)
[2020-07-21 12:17] LABS: ALANINE AMINOTRANSFERASE 26 U/L (12-78); ALBUMIN/GLOBULIN RATIO 0.8 (1.1-1.5); ALKALINE PHOSPHATASE 62 IU/L (46-116); ANION GAP 4 (8-16); ASPARTATE AMINO TRANSFERASE 29 U/L (10-37); BILIRUBIN,TOTAL 0.2 MG/DL (0.1-1.0); BLOOD UREA NITROGEN 15 MG/DL (7-18); BUN/CREATININE RATIO 15.8 (6.6-38.0); CALCIUM 9.2 MG/DL (8.5-10.1); CHLORIDE 97 MMOL/L (99-107); CREATININE 0.95 MG/DL (0.40-0.90); GLUCOSE 177 MG/DL (70-104); MAGNESIUM 1.2 MG/DL (1.5-2.4); POTASSIUM 3.8 MMOL/L (3.5-5.1); SODIUM 134 MMOL/L (135-145); TOTAL CARBON DIOXIDE 32.8 MMOL/L (24-32); TOTAL PROTEIN 6.9 G/DL (6.4-8.2); eGFR 58 ML/MIN
[2020-07-21] MEDS ORDERED: magnesium oxide 400mg tablet PO ONE ×2 (13:00→14:10)
[2020-07-21] MEDS ORDERED: magnesium 2GM in 50ml NS 50 ML IV ONE (13:00)
[2020-07-21] MEDS ORDERED: normal saline 1000ML IV soln IVB ONE (13:05)
[2020-07-21] MEDS ORDERED: CefTRIAXone/D5W-Rocephin 1gm 50 ML IV ONE (13:05)
--- NOTE | 2020-07-21 14:00 | NUR ---
failed iv attempt x2
[2020-07-21] MEDS ORDERED: dextrose 5%-1/2 normal saline 1,000 ML IV SCH (14:22)
[2020-07-21] MEDS ORDERED: acetaminophen 325mg tablet PO PRN ×2 (14:25)
[2020-07-21] MEDS ORDERED: morphine 2 MG/ML inj. syringe IV PRN (14:25)
[2020-07-21] MEDS ORDERED: mag hydrox/Alum hydrox/simeth 30ml oral suspension PO PRN (14:25)
[2020-07-21] MEDS ORDERED: ondansetron/PF 4mg/2ml inj IV PRN (14:25)
[2020-07-21] MEDS ORDERED: magnesium hydroxide 30ml (MOM) UD suspension PO PRN (14:25)
--- NOTE | 2020-07-21 14:37 | NUR ---
son. raines [phone]
[2020-07-21 15:05] LABS: TROPONIN I < 0.04 NG/ML (0.0-0.05)
--- NOTE | 2020-07-21 15:15 | NUR ---
Pt gave consent to update son Jesse ([phone]) on her status. Jesse is her fredi conservator. Per Jesse, pt was placed on Palliative care a few days ago via an RN from [facility] where the Morphine BID order was started. He was concerned his mother might be too sedated. Assured him she was appropriate currently, AOX3. Further explored the discrepance between current [facility] "full code" versus the ems report of pt being under palliative care. Per Jesse, mother does not want any heroic measures, but she has not yet signed the Adv. Dir in his possession. Explained he needed to communicate pt's wishes with the Hospitalist (Dr Pitts, for this admission) as this facility has no documentation to reflect this most recent change. Communicated the need to resolve code status with Jing, RN assuming pt care. Explained the conversation with son with Jing, specifically stating the question and responsibility to resolve code status was now being passed to her. She verbalized understanding. She will follow up with Dr Pitts.
--- NOTE | 2020-07-21 16:05 | NUR ---
Received report from NICOLAS Sheriff in ED. Patient brought up to room 356B via [facility].
--- NOTE | 2020-07-21 16:18 | NUR ---
Notified Dr. Pitts of the discrepancy in pt's code status. Per MD, unless we receive/obtain paperwork from the facility for pt's advanced directive, cannot change code status.
[2020-07-21 16:21] VITALS: BP 125/92
[2020-07-21] MEDS ORDERED: SELE207S7 TOP (16:38)
[2020-07-21] MEDS ORDERED: SACU1TAB PO (16:38)
[2020-07-21] MEDS ORDERED: NAPR-996 PO (16:40)
[2020-07-21] MEDS ORDERED: MORP-92 PO (16:43)
[2020-07-21] MEDS ORDERED: MORP15TA PO (16:43)
[2020-07-21] MEDS ORDERED: ASPI-416 PO (16:52)
[2020-07-21] MEDS ORDERED: polyethylene glycol 3350 17gm powd pack PO PRN (17:30)
[2020-07-21] MEDS ORDERED: non-formulary drug (Acetaminophen (Tylenol Extra Strength) 1 TABLET) PO PRN (17:30)
[2020-07-21] MEDS ORDERED: morphine 10mg/0.5ml (conc. morphine) oral syringe PO PRN (17:35)
[2020-07-21] MEDS ORDERED: dextrose ORAL solution 15 GM/59 ML bottle PO PRN ×2 (17:40)
[2020-07-21] MEDS ORDERED: insulin Lispro (HumaLOG) vial - multi-dose SQ SCH (17:40)
[2020-07-21] MEDS ORDERED: dextrose 50%-water 50ml dispensing syringe IV PRN ×2 (17:40)
[2020-07-21] MEDS ORDERED: MESSAGE TO PHARMACY PO ONE (17:40)
[2020-07-21] MEDS ORDERED: glucagon, human recombinant 1mg kit SUBCUT PRN (17:40)
[2020-07-21 18:00] VITALS: BP 105/47
[2020-07-21] MEDS: normal saline 1000ml 1,000 ML IV SCH (18:05)
[2020-07-21] MEDS: morphine 2 MG/ML inj. syringe IV PRN (18:08)
--- NOTE | 2020-07-21 18:53 | NUR ---
Problems reprioritized. Patient report given, questions answered & plan of care reviewed with NICOLAS Perez.
--- NOTE | 2020-07-21 19:24 | NUR ---
Patient in room [facility]. I have received report from KATHY VALENZUELA and had the opportunity to ask questions and assume patient care. Patient still complaining of pain and will administer per MD order.
[2020-07-21] MEDS ORDERED: metFORMIN 500mg tablet PO SCH (20:00)
[2020-07-21] MEDS: insulin glargine (Lantus) pen - multi-dose SQ SCH (21:00)
[2020-07-21] MEDS: carVEDilol 12.5mg tablet PO SCH (21:15)
[2020-07-21] MEDS: docusate sod 100mg capsule PO SCH (21:15)
[2020-07-21] MEDS: morphine ER 15mg tablet PO SCH (21:15)
[2020-07-21] MEDS: atorvastatin 20mg tablet PO SCH (21:15)
[2020-07-21] MEDS: clozapine 100mg tablet PO SCH (21:16)
[2020-07-21] MEDS: naproxen 500mg tablet PO SCH (21:16)
[2020-07-21] MEDS: sacubitril/valsartan 24mg-26mg tablet PO SCH (21:17)
[2020-07-21] MEDS: oxcarbazepine 150mg tablet PO SCH (21:22)
--- NOTE | 2020-07-21 22:28 | NUR ---
Lantus not administered because of Glucophage given at 1999. Called MD and Glucophage was discontinued and patient will be started on protocol tomorrow.
--- NOTE | 2020-07-21 22:52 | NUR ---
patient refused Addendum: 07/21/20 at 2253 by Ana Collins RN Amended: Links added.
[2020-07-22] VITALS (7 sets, daily range): BP systolic 104–133; BP diastolic 44–62
[2020-07-22] MEDS: normal saline 1000ml 1,000 ML IV SCH ×4 (02:10→21:49)
--- NOTE | 2020-07-22 06:30 | NUR ---
Patient in room [facility]. I have received report from NICOLAS Perez and had the opportunity to ask questions and assume patient care.
[2020-07-22] MEDS ORDERED: spironolactone 25 MG tablet PO SCH (08:00)
[2020-07-22 08:28] LABS: BASOPHILS # (AUTO) 0.1 X10'3 (0-0.2); BASOPHILS % (AUTO) 0.8 % (0-1); EOSINOPHILS % (AUTO) 0 % (0-6); HEMATOCRIT 33.3 % (35.0-45.0); HEMOGLOBIN 11.1 g/dl (12.0-16.0); LYMPHOCYTES # (AUTO) 1.8 X10'3 (1.1-4.8); LYMPHOCYTES % (AUTO) 20.9 % (21-51); MEAN CORPUSCULAR HEMOGLOBIN 31.5 PG (27.0-31.0); MEAN CORPUSCULAR HGB CONC 33.4 g/dL (33.0-36.5); MEAN CORPUSCULAR VOLUME 94.3 FL (78-98); MEAN PLATELET VOLUME 8.4 FL (7.4-10.4); MONOCYTES % (AUTO) 12.3 % (2-12); NEUTROPHILS # (AUTO) 5.6 X10'3 (1.8-7.7); PLATELET COUNT 250 X10'3 (140-440); RED BLOOD COUNT 3.53 X10'6 (4.20-5.60); RED CELL DISTRIBUTION WIDTH 14.1 % (11.5-14.5); WHITE BLOOD COUNT 8.5 X10'3 (4.5-11.0)
[2020-07-22 08:51] LABS: ALANINE AMINOTRANSFERASE 27 U/L (12-78); ALBUMIN 2.6 G/DL (3.4-5.0); ALBUMIN/GLOBULIN RATIO 0.7 (1.1-1.5); ALKALINE PHOSPHATASE 59 IU/L (46-116); ANION GAP 4 (8-16); ASPARTATE AMINO TRANSFERASE 29 U/L (10-37); BILIRUBIN,TOTAL 0.2 MG/DL (0.1-1.0); BLOOD UREA NITROGEN 10 MG/DL (7-18); BUN/CREATININE RATIO 17.5 (6.6-38.0); CALCIUM 8.1 MG/DL (8.5-10.1); CHLORIDE 102 MMOL/L (99-107); CREATININE 0.57 MG/DL (0.40-0.90); GLUCOSE 103 MG/DL (70-104); MAGNESIUM 1.4 MG/DL (1.5-2.4); POTASSIUM 3.6 MMOL/L (3.5-5.1); SODIUM 136 MMOL/L (135-145); TOTAL CARBON DIOXIDE 29.6 MMOL/L (24-32); TOTAL PROTEIN 6.1 G/DL (6.4-8.2); eGFR > 90 ML/MIN
[2020-07-22] MEDS ORDERED: SELENIUM SULFIDE TOP SCH (09:00)
[2020-07-22] MEDS: aspirin 81mg tablet.DR PO SCH (09:40)
[2020-07-22] MEDS: furosemide 20MG tablet PO SCH (09:41)
[2020-07-22] MEDS: clozapine 100mg tablet PO SCH ×2 (09:41→20:28)
[2020-07-22] MEDS: docusate sod 100mg capsule PO SCH ×2 (09:41→20:27)
[2020-07-22] MEDS: venlafaxine XR 75mg capsule (Q24H) PO SCH (09:41)
[2020-07-22] MEDS: naproxen 500mg tablet PO SCH ×2 (09:42→20:27)
[2020-07-22] MEDS: sacubitril/valsartan 24mg-26mg tablet PO SCH ×2 (09:42→20:46)
[2020-07-22] MEDS: oxcarbazepine 150mg tablet PO SCH ×2 (09:42→20:27)
[2020-07-22] MEDS: carVEDilol 12.5mg tablet PO SCH ×2 (09:42→20:27)
[2020-07-22] MEDS: vitamin D (cholecalciferol) 1,000 unit tablet PO SCH (09:43)
[2020-07-22] MEDS: ESCITALOPRAM OXALATE 5 MG TABLET PO SCH (09:43)
[2020-07-22] MEDS: morphine ER 15mg tablet PO SCH ×2 (09:44→20:27)
[2020-07-22] MEDS: ondansetron 4mg rapidly disintigrating tab PO SCH (09:47)
[2020-07-22] MEDS ORDERED: magnesium 4gm in 100ml NS 100 ML IV PRN (09:50)
[2020-07-22] MEDS ORDERED: potassium CL 10mEq/100ml bag 100 ML IV PRN (09:50)
[2020-07-22] MEDS ORDERED: magnesium 2GM in 50ml NS 50 ML IV PRN (09:50)
[2020-07-22] MEDS ORDERED: potassium Cl 20 mEq SR tablet PO PRN (09:50)
[2020-07-22] MEDS: magnesium Cl slow-release 64mg tablet PO PRN ×2 (09:58→16:59)
[2020-07-22] MEDS: CefTRIAXone/D5W-Rocephin 1gm 50 ML IV SCH (13:08)
--- NOTE | 2020-07-22 18:00 | NUR ---
Patient in room [facility]. I have received report from Kerrie VALENZUELA and had the opportunity to ask questions and assume patient care.
--- NOTE | 2020-07-22 18:30 | NUR ---
Problems reprioritized. Patient report given, questions answered & plan of care reviewed with NICOLAS Dumas.
[2020-07-22] MEDS: K and/or MAG REPLACEMENT MC SCH (20:00)
[2020-07-22] MEDS: atorvastatin 20mg tablet PO SCH (20:28)
[2020-07-22] MEDS: enoxaparin 40mg/0.4ml syringe SUBCUT SCH (20:31)
[2020-07-22] MEDS: insulin glargine (Lantus) pen - multi-dose SQ SCH (21:00)
[2020-07-23 00:38] VITALS: BP 130/63
--- NOTE | 2020-07-23 06:21 | NUR ---
Problems reprioritized. Patient report given, questions answered & plan of care reviewed with Sally VALENZUELA.
--- NOTE | 2020-07-23 06:26 | NUR ---
Patient in room [facility]. I have received report from NICOLAS Dumas and had the opportunity to ask questions and assume patient care.
[2020-07-23 07:00] VITALS: BP_SYST 138; BP_SYST 153; BP_DIAS 79; BP_DIAS 85
[2020-07-23 07:12] LABS: BASOPHILS # (AUTO) 0.1 X10'3 (0-0.2); BASOPHILS % (AUTO) 0.9 % (0-1); EOSINOPHILS % (AUTO) 0.1 % (0-6); HEMATOCRIT 31.4 % (35.0-45.0); HEMOGLOBIN 10.5 g/dl (12.0-16.0); LYMPHOCYTES # (AUTO) 1.6 X10'3 (1.1-4.8); LYMPHOCYTES % (AUTO) 20.3 % (21-51); MEAN CORPUSCULAR HEMOGLOBIN 31.4 PG (27.0-31.0); MEAN CORPUSCULAR HGB CONC 33.4 g/dL (33.0-36.5); MEAN CORPUSCULAR VOLUME 94.1 FL (78-98); MEAN PLATELET VOLUME 9.2 FL (7.4-10.4); MONOCYTES # (AUTO) 0.9 X10'3 (0-0.9); MONOCYTES % (AUTO) 10.9 % (2-12); NEUTROPHILS # (AUTO) 5.4 X10'3 (1.8-7.7); NEUTROPHILS % (AUTO) 67.8 % (42-75); PLATELET COUNT 135 X10'3 (140-440); RED BLOOD COUNT 3.34 X10'6 (4.20-5.60); RED CELL DISTRIBUTION WIDTH 13.9 % (11.5-14.5); WHITE BLOOD COUNT 7.9 X10'3 (4.5-11.0)
[2020-07-23 07:37] LABS: ALANINE AMINOTRANSFERASE 30 U/L (12-78); ALBUMIN 2.5 G/DL (3.4-5.0); ALBUMIN/GLOBULIN RATIO 0.8 (1.1-1.5); ALKALINE PHOSPHATASE 53 IU/L (46-116); ANION GAP 9 (8-16); ASPARTATE AMINO TRANSFERASE 34 U/L (10-37); BILIRUBIN,TOTAL 0.2 MG/DL (0.1-1.0); BLOOD UREA NITROGEN 8 MG/DL (7-18); BUN/CREATININE RATIO 15.4 (6.6-38.0); CALCIUM 8.1 MG/DL (8.5-10.1); CHLORIDE 104 MMOL/L (99-107); CREATININE 0.52 MG/DL (0.40-0.90); GLUCOSE 107 MG/DL (70-104); MAGNESIUM 1.4 MG/DL (1.5-2.4); POTASSIUM 3.3 MMOL/L (3.5-5.1); SODIUM 141 MMOL/L (135-145); TOTAL CARBON DIOXIDE 28.5 MMOL/L (24-32); TOTAL PROTEIN 5.6 G/DL (6.4-8.2); eGFR > 90 ML/MIN
[2020-07-23] MEDS: vitamin D (cholecalciferol) 1,000 unit tablet PO SCH (07:45)
[2020-07-23] MEDS: venlafaxine XR 75mg capsule (Q24H) PO SCH (07:45)
[2020-07-23] MEDS: ondansetron 4mg rapidly disintigrating tab PO SCH (07:45)
[2020-07-23] MEDS: ESCITALOPRAM OXALATE 5 MG TABLET PO SCH (07:46)
[2020-07-23] MEDS: docusate sod 100mg capsule PO SCH ×2 (07:46→20:01)
[2020-07-23] MEDS: furosemide 20MG tablet PO SCH (07:47)
[2020-07-23] MEDS: naproxen 500mg tablet PO SCH ×2 (07:48→19:59)
[2020-07-23] MEDS: morphine ER 15mg tablet PO SCH ×2 (07:49→20:01)
[2020-07-23] MEDS: sacubitril/valsartan 24mg-26mg tablet PO SCH ×2 (07:49→19:59)
[2020-07-23] MEDS: aspirin 81mg tablet.DR PO SCH (07:49)
[2020-07-23] MEDS: carVEDilol 12.5mg tablet PO SCH ×2 (07:50→20:01)
[2020-07-23] MEDS: CefTRIAXone/D5W-Rocephin 1gm 50 ML IV SCH (07:51)
[2020-07-23] MEDS: oxcarbazepine 150mg tablet PO SCH ×2 (07:51→20:01)
[2020-07-23] MEDS: normal saline 1000ml 1,000 ML IV SCH ×2 (07:51→19:58)
[2020-07-23] MEDS: spironolactone 25 MG tablet PO SCH (07:58)
[2020-07-23] MEDS: K and/or MAG REPLACEMENT MC SCH ×2 (08:00→20:00)
[2020-07-23] MEDS: potassium Cl 20 mEq SR tablet PO PRN ×3 (08:02→17:39)
[2020-07-23] MEDS: magnesium Cl slow-release 64mg tablet PO PRN (08:02)
[2020-07-23] MEDS: clozapine 100mg tablet PO SCH ×2 (08:58→20:01)
[2020-07-23 11:30] VITALS: BP 125/65
--- NOTE | 2020-07-23 18:04 | NUR ---
Problems reprioritized. Patient report given, questions answered & plan of care reviewed with NICOLAS Dumas.
--- NOTE | 2020-07-23 18:05 | NUR ---
Student documentation: I have reviewed and agree with all interventions, assessments performed and documented by SN Yas. Student Medication Administration: For this medication-pass time frame, all medication were reviewed, dispensed, administered and documented per hospital policy by SN Yas.
--- NOTE | 2020-07-23 18:10 | NUR ---
Problems reprioritized. Patient report given, questions answered & plan of care reviewed with NICOLAS Dumas.
--- NOTE | 2020-07-23 18:12 | NUR ---
Patient in room [facility]. I have received report from Sally VALENZUELA and had the opportunity to ask questions and assume patient care.
[2020-07-23] MEDS: lactobacillus rhamnosus 10,000 MMU CELLS/CAPSULE PO SCH (19:59)
[2020-07-23 20:00] VITALS: BP_SYST 133; BP_SYST 135; BP_SYST 144; BP_DIAS 58; BP_DIAS 59; BP_DIAS 75
[2020-07-23] MEDS: enoxaparin 40mg/0.4ml syringe SUBCUT SCH (20:02)
[2020-07-23] MEDS: morphine 2 MG/ML inj. syringe IV PRN (20:04)
[2020-07-23] MEDS: atorvastatin 20mg tablet PO SCH (20:04)
[2020-07-23] MEDS: insulin glargine (Lantus) pen - multi-dose SQ SCH (21:00)
[2020-07-24 00:09] VITALS: BP 118/56
[2020-07-24 05:30] LABS: BASOPHILS # (AUTO) 0.1 X10'3 (0-0.2); EOSINOPHILS % (AUTO) 0 % (0-6); HEMATOCRIT 30.1 % (35.0-45.0); HEMOGLOBIN 10.1 g/dl (12.0-16.0); LYMPHOCYTES # (AUTO) 1.7 X10'3 (1.1-4.8); MEAN CORPUSCULAR HEMOGLOBIN 31.3 PG (27.0-31.0); MEAN CORPUSCULAR HGB CONC 33.5 g/dL (33.0-36.5); MEAN CORPUSCULAR VOLUME 93.4 FL (78-98); MEAN PLATELET VOLUME 8.4 FL (7.4-10.4); MONOCYTES # (AUTO) 0.8 X10'3 (0-0.9); MONOCYTES % (AUTO) 11.7 % (2-12); NEUTROPHILS % (AUTO) 61.3 % (42-75); PLATELET COUNT 245 X10'3 (140-440); RED BLOOD COUNT 3.22 X10'6 (4.20-5.60); RED CELL DISTRIBUTION WIDTH 13.7 % (11.5-14.5); WHITE BLOOD COUNT 6.5 X10'3 (4.5-11.0)
[2020-07-24 05:41] LABS: ALANINE AMINOTRANSFERASE 29 U/L (12-78); ALBUMIN 2.4 G/DL (3.4-5.0); ALBUMIN/GLOBULIN RATIO 0.8 (1.1-1.5); ALKALINE PHOSPHATASE 51 IU/L (46-116); ANION GAP 7 (8-16); ASPARTATE AMINO TRANSFERASE 30 U/L (10-37); BILIRUBIN,TOTAL 0.2 MG/DL (0.1-1.0); BLOOD UREA NITROGEN 10 MG/DL (7-18); BUN/CREATININE RATIO 16.1 (6.6-38.0); CALCIUM 8.4 MG/DL (8.5-10.1); CHLORIDE 105 MMOL/L (99-107); CREATININE 0.62 MG/DL (0.40-0.90); GLUCOSE 110 MG/DL (70-104); MAGNESIUM 1.5 MG/DL (1.5-2.4); POTASSIUM 3.8 MMOL/L (3.5-5.1); SODIUM 141 MMOL/L (135-145); TOTAL CARBON DIOXIDE 29.4 MMOL/L (24-32); TOTAL PROTEIN 5.6 G/DL (6.4-8.2); eGFR > 90 ML/MIN
--- NOTE | 2020-07-24 06:17 | NUR ---
Problems reprioritized. Patient report given, questions answered & plan of care reviewed with Sally VALENZUELA.
[2020-07-24] MEDS: CefTRIAXone/D5W-Rocephin 1gm 50 ML IV SCH (07:54)
[2020-07-24] MEDS: carVEDilol 12.5mg tablet PO SCH ×2 (07:58→19:57)
[2020-07-24] MEDS: furosemide 20MG tablet PO SCH (07:58)
[2020-07-24] MEDS: ondansetron 4mg rapidly disintigrating tab PO SCH (07:58)
[2020-07-24] MEDS: morphine ER 15mg tablet PO SCH ×2 (07:59→19:57)
[2020-07-24] MEDS: docusate sod 100mg capsule PO SCH ×2 (07:59→19:57)
[2020-07-24] MEDS: vitamin D (cholecalciferol) 1,000 unit tablet PO SCH (07:59)
[2020-07-24] MEDS: lactobacillus rhamnosus 10,000 MMU CELLS/CAPSULE PO SCH ×2 (07:59→19:57)
[2020-07-24] MEDS: aspirin 81mg tablet.DR PO SCH (07:59)
[2020-07-24 08:00] VITALS: BP_SYST 110; BP_SYST 114; BP_SYST 130; BP_SYST 135; BP_DIAS 40; BP_DIAS 48; BP_DIAS 58; BP_DIAS 62
[2020-07-24] MEDS: sacubitril/valsartan 24mg-26mg tablet PO SCH ×2 (08:00→19:57)
[2020-07-24] MEDS: K and/or MAG REPLACEMENT MC SCH ×2 (08:00→20:00)
[2020-07-24] MEDS: naproxen 500mg tablet PO SCH ×2 (08:02→19:57)
[2020-07-24] MEDS: ESCITALOPRAM OXALATE 5 MG TABLET PO SCH (08:02)
[2020-07-24] MEDS: venlafaxine XR 75mg capsule (Q24H) PO SCH (08:03)
[2020-07-24] MEDS: clozapine 100mg tablet PO SCH ×2 (08:04→20:03)
[2020-07-24] MEDS: oxcarbazepine 150mg tablet PO SCH ×2 (08:04→19:57)
[2020-07-24] MEDS: spironolactone 25 MG tablet PO SCH (08:05)
[2020-07-24 11:26] VITALS: BP 130/58
--- NOTE | 2020-07-24 14:57 | NUR ---
Spoke with Ayla (sister). updated on plan of care. phone number [phone].
[2020-07-24] MEDS: normal saline 1000ml 1,000 ML IV SCH ×2 (15:14→19:52)
[2020-07-24] MEDS ORDERED: RISPERDAL CONSTA 37.5 MG IM SCH (15:35)
--- NOTE | 2020-07-24 17:00 | NUR ---
Patient is due for her q2w IM injection of Risperdal, spoke with [facility] long-term ([facility]) who said that Efren [phone] is the disability case manager and the person that is in charge of her medications. Attempted a phone call to Efren, no answer. Will pass on to noc shift.
--- NOTE | 2020-07-24 18:00 | NUR ---
Patient in room [facility]. I have received report from Sally VALENZUELA and had the opportunity to ask questions and assume patient care.
--- NOTE | 2020-07-24 18:16 | NUR ---
Student Medication Administration: For this medication-pass time frame, all medication were reviewed, dispensed, administered and documented per hospital policy by SN Yas. Student documentation: I have reviewed and agree with all interventions, assessments performed and documented by SN Yas.
--- NOTE | 2020-07-24 18:22 | NUR ---
Problems reprioritized. Patient report given, questions answered & plan of care reviewed with NICOLAS Dumas.
[2020-07-24 19:35] VITALS: BP 126/56
[2020-07-24 20:00] VITALS: BP_SYST 151; BP_SYST 159; BP_DIAS 63; BP_DIAS 69
[2020-07-24] MEDS: atorvastatin 20mg tablet PO SCH (20:03)
[2020-07-24] MEDS: enoxaparin 40mg/0.4ml syringe SUBCUT SCH (20:10)
[2020-07-24] MEDS: morphine 2 MG/ML inj. syringe IV PRN (20:14)
[2020-07-24] MEDS: insulin glargine (Lantus) pen - multi-dose SQ SCH (21:00)
[2020-07-25] VITALS: BP 163/79
[2020-07-25] MEDS: morphine 2 MG/ML inj. syringe IV PRN (00:14)
[2020-07-25] MEDS: normal saline 1000ml 1,000 ML IV SCH (05:14)
[2020-07-25 05:17] LABS: ALANINE AMINOTRANSFERASE 32 U/L (12-78); ALBUMIN 2.4 G/DL (3.4-5.0); ALBUMIN/GLOBULIN RATIO 0.7 (1.1-1.5); ALKALINE PHOSPHATASE 57 IU/L (46-116); ANION GAP 4 (8-16); ASPARTATE AMINO TRANSFERASE 29 U/L (10-37); BILIRUBIN,TOTAL 0.2 MG/DL (0.1-1.0); BLOOD UREA NITROGEN 12 MG/DL (7-18); CALCIUM 8.5 MG/DL (8.5-10.1); CHLORIDE 103 MMOL/L (99-107); GLUCOSE 137 MG/DL (70-104); MAGNESIUM 1.4 MG/DL (1.5-2.4); POTASSIUM 3.5 MMOL/L (3.5-5.1); SODIUM 138 MMOL/L (135-145); TOTAL CARBON DIOXIDE 30.7 MMOL/L (24-32); TOTAL PROTEIN 5.7 G/DL (6.4-8.2); eGFR > 90 ML/MIN
[2020-07-25 05:21] LABS: BASOPHILS # (AUTO) 0.1 X10'3 (0-0.2); BASOPHILS % (AUTO) 1.1 % (0-1); EOSINOPHILS % (AUTO) 0 % (0-6); LYMPHOCYTES # (AUTO) 1.6 X10'3 (1.1-4.8); MEAN PLATELET VOLUME 8.2 FL (7.4-10.4)
[2020-07-25 05:22] LABS: HEMOGLOBIN 10.2 g/dl (12.0-16.0); LYMPHOCYTES % (AUTO) 24.6 % (21-51); MEAN CORPUSCULAR HEMOGLOBIN 31.7 PG (27.0-31.0); MEAN CORPUSCULAR HGB CONC 33.9 g/dL (33.0-36.5); MEAN CORPUSCULAR VOLUME 93.4 FL (78-98); MONOCYTES # (AUTO) 0.8 X10'3 (0-0.9); MONOCYTES % (AUTO) 11.9 % (2-12); NEUTROPHILS # (AUTO) 4.1 X10'3 (1.8-7.7); NEUTROPHILS % (AUTO) 62.4 % (42-75); PLATELET COUNT 253 X10'3 (140-440); RED BLOOD COUNT 3.21 X10'6 (4.20-5.60); WHITE BLOOD COUNT 6.6 X10'3 (4.5-11.0)
--- NOTE | 2020-07-25 06:10 | NUR ---
Patient in room [facility]. I have received report from Alesia VALENZUELA and had the opportunity to ask questions and assume patient care.
--- NOTE | 2020-07-25 06:24 | NUR ---
Problems reprioritized. Patient report given, questions answered & plan of care reviewed with Krystal VALENZUELA.
[2020-07-25 07:00] VITALS: BP 117/55
--- NOTE | 2020-07-25 07:25 | NUR ---
Dr. Pitts pagelisa regarding pt unable to wake up, responds to sternal rub pain stimuli but will not open eyes. Addendum: 07/25/20 at 0727 by Krystal Polk RN Pt VSS 117/55, 97RA, 91HR, 16 resp, 98.2, BS 117. Will continue to monitor. Awaiting callback from Dr. Pitts.
[2020-07-25] MEDS: K and/or MAG REPLACEMENT MC SCH (08:00)
[2020-07-25] MEDS: CefTRIAXone/D5W-Rocephin 1gm 50 ML IV SCH (08:17)
--- NOTE | 2020-07-25 10:30 | NUR ---
Patient awoke with PT at bedside. VSS. Pt able to get up and walk with PT, A&Ox4. Pt stated she felt really tired this morning.
[2020-07-25] MEDS: spironolactone 25 MG tablet PO SCH (10:57)
[2020-07-25] MEDS: docusate sod 100mg capsule PO SCH (10:58)
[2020-07-25] MEDS: carVEDilol 12.5mg tablet PO SCH (10:58)
[2020-07-25] MEDS: aspirin 81mg tablet.DR PO SCH (10:58)
[2020-07-25] MEDS: clozapine 100mg tablet PO SCH (10:58)
[2020-07-25] MEDS: venlafaxine XR 75mg capsule (Q24H) PO SCH (10:58)
[2020-07-25] MEDS: lactobacillus rhamnosus 10,000 MMU CELLS/CAPSULE PO SCH (10:58)
[2020-07-25] MEDS: vitamin D (cholecalciferol) 1,000 unit tablet PO SCH (10:59)
[2020-07-25] MEDS: sacubitril/valsartan 24mg-26mg tablet PO SCH (10:59)
[2020-07-25] MEDS: morphine ER 15mg tablet PO SCH (10:59)
[2020-07-25] MEDS: naproxen 500mg tablet PO SCH (10:59)
[2020-07-25] MEDS: oxcarbazepine 150mg tablet PO SCH (10:59)
[2020-07-25] MEDS: furosemide 20MG tablet PO SCH (10:59)
[2020-07-25] MEDS: ESCITALOPRAM OXALATE 5 MG TABLET PO SCH (10:59)
[2020-07-25 11:00] VITALS: BP 144/70
[2020-07-25] MEDS: ondansetron 4mg rapidly disintigrating tab PO SCH (11:00)
[2020-07-25 11:29] VITALS: BP 144/70
--- NOTE | 2020-07-25 11:32 | NUR ---
Problems reprioritized. Patient report given, questions answered & plan of care reviewed with Maribell VALENZUELA.
[2020-07-25] MEDS ORDERED: magnesium Cl slow-release 64mg tablet PO PRN (11:40)
[2020-07-25] MEDS ORDERED: SULF1TAB49 PO (14:17)
--- NOTE | 2020-07-25 14:50 | NUR ---
Discharge instructions given to patient. I also gave telephone discharge instructions to Sowmya, the caregiver at the [facility]. Sowmya, the caregiver verbalized understanding of all instructions made. I told Sowmya that patient has antibiotic prescription was sent electronically to pharmacy of choice. Peripheral IV catheter removed, tip intact. Patient's belongings sent with patient including her discharge paperworks. 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
--- NOTE | 2020-07-25 15:05 | NUR ---
Addendum to the discharge note: I have instructed patient and the caregiver Sowmya that [facility] staff called reminding patient about her appointment for Risperidone shot that she need supposedly today but patient in the hospital so patient will need to follow up with [facility] upon discharge for the Risperidone shot. Patient and caregiver verbalized understanding of this instruction
--- NOTE | 2020-07-25 17:09 | NUR ---
Received a phone call from son. He expressed concern about patient not able to walk well at the [facility] where patient lives. He felt that patient should not be discharged back to [facility] care yet. I told him that I do not have case finisher available at this time and that I had requested case finisher to order a walker for patient. Patient son requested to talk to the charge nurse. Charge nurse Arti notified about this
[2020-07-25] MEDS ORDERED: magnesium Cl slow-release 64mg tablet PO SCH (20:00)
== END 2020-07-25 14:49 | disposition home health service (06) | DRG 689 ==
LOC: ER 10:57 → ED HOLD 14:22 → UNDODISOB 15:50 → SUR 3N 15:51 → OBSVTOIN 07-23 09:54
PROVIDERS: ADMIT Internal Medicine; ATTEND Internal Medicine
DX: N39.0 Urinary tract infection, site not specified (principal); G93.41 Metabolic encephalopathy; I50.22 Chronic systolic (congestive) heart failure; N17.9 Acute kidney failure, unspecified; C20 Malignant neoplasm of rectum; I25.10 Atherosclerotic heart disease of native coronary artery without angina pectoris; E83.42 Hypomagnesemia; B96.1 Klebsiella pneumoniae [K. pneumoniae] as the cause of diseases classified elsewhere; F32.9 Major depressive disorder, single episode, unspecified; F41.9 Anxiety disorder, unspecified; G89.29 Other chronic pain; Z51.5 Encounter for palliative care; E11.9 Type 2 diabetes mellitus without complications; F17.210 Nicotine dependence, cigarettes, uncomplicated; E78.5 Hyperlipidemia, unspecified; E86.0 Dehydration; F20.9 Schizophrenia, unspecified; Z22.7 Latent tuberculosis; Z79.82 Long term (current) use of aspirin; Z79.899 Other long term (current) drug therapy; Z95.810 Presence of automatic (implantable) cardiac defibrillator; Z79.84 Long term (current) use of oral hypoglycemic drugs
CPT/HCPCS: 36415; 71045; 80053; 81001; 82948; 83036; 83735; 83880; 84145; 84484; 85025; 87077; 87081; 87088; 87186; 96365; 96366; 96367; 97112; 97116; 97161; 97530; 97535; 99285; G0378; J0696; J1650; J1815; J2270; J3475; J7030